=== PATIENT | male | born 1950 | race Caucasian/White ===

== ENCOUNTER 2024-06-29 12:50 | Outpatient (CLI) | payer OTHER ==
[~2024-06-29 12:50] MED LIST: barium sulfate 340gm for oral suspension 1 BOTTLE SUSP.RECON PO ONE
== END 2024-06-29 23:59 | disposition home or self-care (01) ==
LOC: RAD 12:50
PROVIDERS: ATTEND Emergency Medicine
DX: K44.9 Diaphragmatic hernia without obstruction or gangrene (principal); K22.89 Other specified disease of esophagus; R47.02 Dysphasia
CPT/HCPCS: 74220